=== PATIENT | female | born 1985 | race Caucasian/White ===

== ENCOUNTER 2019-09-13 18:10 | Emergency (ER) | payer BC ==
[2019-09-13 18:24] VITALS: BP 135/92
[2019-09-13 18:45] VITALS: PULSE 96
--- NOTE | 2019-09-13 19:05 | EDM.PDOC ---
ED HPI GENERAL MEDICAL PROBLEM - General Chief Complaint: Lower Extremity Injury/Pain Stated Complaint: left knee pain Time Seen by Provider: 09/13/19 18:59 Source of Information: Reports: Patient History Limitations: Reports: No Limitations - History of Present Illness INITIAL COMMENTS - FREE TEXT/NARRATIVE: Patient noted left knee pain after she tripped while outside the house watering. Was able to catch herself and not fall by leaning against house. Knee pain noted. This happened , two days ago. Noted today that pain started to run up the lateral left leg above knee. Came for evaluation. Had similar pain several years ago that was worked up and she notes she had normal MRI study at that time. Pain went away on own. Now it has returned. Able to ambulate. Using Motrin PRN at home/travis wrap. Denies other injuries. No numbness/tingling in involved leg. No swelling or bruising either. No other complaints. Discomfort is better with rest. Left Knee Pain Score (Numeric/FACES): 6 - Related Data Allergies Allergy/AdvReac Type Severity Reaction Status Date / Time amoxicillin trihydrate Allergy Nausea and Verified 09/13/19 18:18 [From Augmentin] Vomiting bismuth subsalicylate Allergy Facial Verified 09/13/19 18:18 [From Pepto-Bismol] Swelling, Rash ethinyl estradiol Allergy Other, N/V Verified 09/13/19 18:18 [From Alesse (21)] levonorgestrel Allergy Other, N/V Verified 09/13/19 18:18 [From Alesse (21)] potassium clavulanate Allergy Nausea and Verified 09/13/19 18:18 [From Augmentin] Vomiting Home Meds: Home Meds Cholecalciferol (Vitamin D3) [Vitamin D3] 4,000 unit PO QPM 03/21/15 [History] Fluticasone Propionate [Flonase] 2 spray NASBOTH BEDTIME 03/21/15 [History] Mometasone Furoate [Asmanex 220 MCG] 2 puff INH QAM 03/21/15 [History] RX: Albuterol [Ventolin HFA] 2 puff INH Q4HR PRN 03/21/15 [History] RX: Multivitamins [Tab-A-Ok] 1 tab PO QAM 03/21/15 [History] RX: Sertraline [Zoloft] 200 mg PO QPM 03/21/15 [History] Spironolactone 100 mg PO DAILY 03/21/15 [History] Azelastine [Astelin Nasal Soln] 2 inhalation JONAH BID 09/13/19 [History] Diethylpropion HCl [Diethylpropion HCl ER] 75 mg PO DAILY 09/13/19 [History] Loratadine [Claritin] 10 mg PO DAILY 09/13/19 [History] Propranolol [Inderal LA 24 Hr] 80 mg PO DAILY 09/13/19 [History] RX: Fluocinonide [Lidex 0.05% Top Soln] 1 applic TOP BID 09/13/19 [History] Rosuvastatin [Crestor] 5 mg PO DAILY 09/13/19 [History] buPROPion HCL [Wellbutrin Xl] 300 mg PO DAILY 09/13/19 [History] hydrOXYzine pamoate [Vistaril] 25 mg PO Q8H PRN 09/13/19 [History] Past Medical History HEENT History: Reports: Impaired Vision Other HEENT History: Seasonal allergies Cardiovascular History: Reports: High Cholesterol Respiratory History: Reports: Asthma Gastrointestinal History: Reports: Cholelithiasis 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: Musculoskeletal History: Reports: Other (See Below) (left knee pain) Psychiatric History: Reports: Anxiety, Depression Endocrine/Metabolic History: Reports: Obesity/BMI 30+ - Past Surgical History HEENT Surgical History: Reports: Oral Surgery GI Surgical History: Reports: Cholecystectomy Social & Family History - Tobacco Use Smoking Status *Q: Never Smoker - Caffeine Use Caffeine Use: Reports: Coffee, Soda - Recreational Drug Use Recreational Drug Use: No Review of Systems - Review of Systems Review Of Systems: See Below Musculoskeletal: Reports: Joint Pain (left knee), Muscle Stiffness (left knee). Denies: Joint Swelling Skin: Reports: No Symptoms Neurological: Reports: No Symptoms Psychiatric: Reports: No Symptoms ED EXAM, GENERAL - Physical Exam Exam: See Below Exam Limited By: No Limitations General Appearance: Alert, WD/WN, No Apparent Distress Eye Exam: Bilateral Eye: EOMI, PERRL Throat/Mouth: Normal Lips, Normal Voice, No Airway Compromise Head: Atraumatic, Normocephalic Neck: Supple Respiratory/Chest: No Respiratory Distress Extremities: Normal Capillary Refill, Limited Range of Motion (some limitation with extension and flexion left knee due to pain), Other (Left knee joint shows no swelling/increased warmth. No joint line tenderness with palpation med/lat. No patellar ligament tenderness. Patella nontender. No joint laxity noted. Foot/lower leg nontender and unremarkable. ). No: Joint Swelling, Rj's Sign, Increased Warmth, Mottled, Pallor, Redness Neurological: Alert, Oriented, Normal Cognition Psychiatric: Normal Affect, Normal Mood Skin Exam: Warm, Dry, Intact, Normal Color Course - Vital Signs Last Recorded V/S: Last Vital Signs Temp 36.6 C 09/13/19 18:10 Pulse 96 09/13/19 18:10 Resp 20 09/13/19 18:10 BP 135/92 H 09/13/19 18:24 Pulse Ox 97 09/13/19 18:10 - Orders/Labs/Meds Orders: Active Orders 24 hr Category Date Time Status Knee 3V Lt [CR] Stat Exams 09/13/19 18:28 Taken - Re-Assessments/Exams Free Text/Narrative Re-Assessment/Exam: Xray ordered and no bony injury noted. Pending Radiology review. Overall unremarkable exam. Palpation cannot reproduce pain. Ligaments appear intact. No joint line tenderness. Cannot rule out meniscal injury. Patient denies knee locking up or giving way. Able to ambulate and does not want crutches. Conservative treatment at this time. Toradol PRN given for pain. Ice/elevation. Observe for changes. To follow up with PCP in 1-2 weeks if pain has not improved significantly, or if she notes any instability of the knee or locking. Patient is agreeable with plan. Precautions reviewed. To follow up otherwise as needed. Departure - Departure Time of Disposition: 19:00 Disposition: Home, Self-Care 01 Condition: Good Clinical Impression: Left knee injury Qualifiers: Encounter type: initial encounter Qualified Code(s): S89.92XA - Unspecified injury of left lower leg, initial encounter - Discharge Information *PRESCRIPTION DRUG MONITORING PROGRAM REVIEWED*: Not Applicable *COPY OF PRESCRIPTION DRUG MONITORING REPORT IN PATIENT NANCY: Not Applicable Instructions: Knee Sprain, Adult Referrals: Xin Elder, [facility] [employer] [facility] [employer] [Primary Care Provider] - Forms: ED Department Discharge Additional Instructions: Watch and see if pain improves. If not, please get rechecked with your primary provider as we discussed in two weeks. You may nee additional imaging or referral to ortho. Follow up otherwise as needed. OK to take one Toradol every 6 hours (with food). Do not take any other NSAID with it like Motrin or Aleve! Sepsis Event Note (ED) - Evaluation Sepsis Screening Result: No Definite Risk - Focused Exam Vital Signs: Vital Signs Temp Pulse Resp BP Pulse Ox 09/13/19 18:24 135/92 H 09/13/19 18:10 36.6 C 96 20 151/93 H 97 - My Orders Last 24 Hours: My Active Orders 09/13/19 18:28 Knee 3V Lt [CR] Stat - Assessment/Plan Last 24 Hours: My Active Orders 09/13/19 18:28 Knee 3V Lt [CR] Stat
== END 2019-09-13 19:15 | disposition home or self-care (01) ==
LOC: LL.ED 18:10
DX: S89.92XA Unspecified injury of left lower leg, initial encounter (principal); E78.00 Pure hypercholesterolemia, unspecified; J45.909 Unspecified asthma, uncomplicated; F41.9 Anxiety disorder, unspecified; F32.9 Major depressive disorder, single episode, unspecified; E66.9 Obesity, unspecified; Z68.41 Body mass index [BMI] 40.0-44.9, adult; Z88.1 Allergy status to other antibiotic agents; Z88.0 Allergy status to penicillin; X58.XXXA Exposure to other specified factors, initial encounter; Y92.009 Unspecified place in unspecified non-institutional (private) residence as the place of occurrence of the external cause
CPT/HCPCS: 73562-LT; 99283-25

== ENCOUNTER 2021-09-18 11:10 | Emergency (ER) | payer BC ==
[2021-09-18] MEDS ORDERED: Sodium Chloride 0.9% 10 ML Syringe FLUSH PRN (11:25)
[2021-09-18] MEDS ORDERED: cefTRIAXone 2 GM in Sodium Chloride 0.9% 100 ML IV ONE (11:28)
[2021-09-18] MEDS ORDERED: cefTRIAXone 2 GM Vial ONE (11:51)
[2021-09-18 12:16] LABS: ANION GAP 7.7 meq/L (7-15); CHLORIDE,CL 107 mmol/L (98-107); SODIUM,NA 140 mmol/L (136-145)
[2021-09-18 12:17] LABS: ESTIMATED GFR 85 mL/min (>=60)
[2021-09-18 12:58] VITALS: BP 104/62; PULSE 60
== END 2021-09-18 12:45 | disposition home or self-care (01) ==
LOC: LL.ED 11:10
DX: L03.115 Cellulitis of right lower limb (principal); E66.9 Obesity, unspecified; E78.00 Pure hypercholesterolemia, unspecified; Z88.6 Allergy status to analgesic agent; Z79.899 Other long term (current) drug therapy
CPT/HCPCS: 36415; 80053; 85025; 86140; 96365; 99283; J0696; J3490

== ENCOUNTER 2023-06-24 09:20 | Emergency (ER) | payer BC ==
[2023-06-24 10:09] LABS: CORONAVIRUS COVID-19 NAA NEGATIVE (NEGATIVE); INFLUENZA A NAA NEGATIVE (NEGATIVE); INFLUENZA B NAA POSITIVE (NEGATIVE); RESPIRATORY SYNCYTIAL VIR NAA NEGATIVE (NEGATIVE)
[2023-06-24 10:56] VITALS: BP 135/90; PULSE 86
== END 2023-06-24 10:45 | disposition home or self-care (01) ==
LOC: LL.ED 09:20
DX: J10.1 Influenza due to other identified influenza virus with other respiratory manifestations (principal); E78.00 Pure hypercholesterolemia, unspecified; J45.909 Unspecified asthma, uncomplicated; E66.9 Obesity, unspecified; Z88.5 Allergy status to narcotic agent; Z88.8 Allergy status to other drugs, medicaments and biological substances; Z90.49 Acquired absence of other specified parts of digestive tract; Z79.899 Other long term (current) drug therapy; Z79.51 Long term (current) use of inhaled steroids
CPT/HCPCS: 0241U; 87081; 87430; 99283